=== PATIENT | female | born 1975 | race Asian ===

== ENCOUNTER → 2018-11-19 | Outpatient (CLI) | payer OTHER | LOC: MHCPAIN 15:09 | DX: G89.29 Other chronic pain (principal); M54.12 Radiculopathy, cervical region; M47.812 Spondylosis without myelopathy or radiculopathy, cervical region | CPT/HCPCS: G0463 ==

== ENCOUNTER → 2018-11-27 | Outpatient (CLI) | payer OTHER | LOC: MHCPAIN 08:58 | DX: M54.12 Radiculopathy, cervical region (principal); M47.812 Spondylosis without myelopathy or radiculopathy, cervical region | CPT/HCPCS: J1100; Q9967 ==

== ENCOUNTER → 2018-12-10 | Outpatient (CLI) | payer OTHER | LOC: MHCPAIN 10:17 | DX: G89.29 Other chronic pain (principal); M54.12 Radiculopathy, cervical region; M47.812 Spondylosis without myelopathy or radiculopathy, cervical region | CPT/HCPCS: G0463 ==

== ENCOUNTER → 2018-12-18 | Outpatient (CLI) | payer OTHER | LOC: MHCPAIN 10:09 | DX: M47.812 Spondylosis without myelopathy or radiculopathy, cervical region (principal); M54.12 Radiculopathy, cervical region | CPT/HCPCS: J1100; Q9967 ==

== ENCOUNTER → 2018-12-31 | Outpatient (CLI) | payer OTHER | LOC: MHCPAIN 10:14 | DX: G89.29 Other chronic pain (principal); M54.12 Radiculopathy, cervical region; M47.812 Spondylosis without myelopathy or radiculopathy, cervical region | CPT/HCPCS: G0463 ==

== ENCOUNTER 2019-04-23 04:14 | Emergency (ER) | payer OTHER ==
[~2019-04-23] VITALS: Ht 165.1 cm; Wt 77.7 kg
[2019-04-23 04:17] VITALS: TEMP 97.8
[2019-04-23] MEDS ORDERED: PROAIR HFA0.09 MG/AC IH (04:23)
[2019-04-23] MEDS ORDERED: NEURONTIN600 MG/TAB PO (04:24)
[2019-04-23] MEDS ORDERED: MULTIPLE VITAMI1 CAP PO (04:25)
[2019-04-23] MEDS ORDERED: ZOLOFT 50MG50 MG PO (04:25)
[2019-04-23] MEDS ORDERED: EMERGEN-C 1,01000 MG PO (04:26)
[2019-04-23] MEDS ORDERED: ECHINACEA PURPU80 MG PO (04:26)
[2019-04-23 04:49] LABS: BASO % 0.4 % (0.0-2.0); EOS # 0.2 (0.0-0.7); EOS % 2.3 % (0-4.0); GRAN # 6.5 (1.4-6.5); GRAN % 62.5 % (42.2-75.2); HEMATOCRIT 43.6 % (37.0-47.0); HEMOGLOBIN 14.6 g/dl (12.5-16.0); MEAN CELL VOLUME 85 fl (80.0-100.0); MEAN CORPUSCULAR HEMOGLOBIN 29 pg (27.0-31.0); MEAN CORPUSCULAR HGB CONC 34 g/dl (33.0-37.0); MEAN PLATELET VOLUME 9.3 fl (7.4-10.4); MONO # 0.6 (0.1-0.6); MONO % 5.5 % (1.7-9.3); PLATELET COUNT 268 K/mm3 (130-400); RED BLOOD COUNT 5.12 M/mm3 (4.10-5.30); REDCELL DISTRIBUTION WIDTH-CV 12.8 % (11.5-14.5)
[2019-04-23 04:57] LABS: BILIRUBIN,TOTAL 0.4 mg/dL (0.0-1.0); CREATININE, serum 0.6 (0.52-1.25); POTASSIUM 3.3 mmol/L (3.4-5.0); TOTAL PROTEIN 8.6 gm/dL (6.4-8.2)
[2019-04-23] MEDS ORDERED: TESSALON PERLE200 MG PO (06:04)
[2019-04-23 06:12] VITALS: BP 112/73; PULSE 90
== END 2019-04-23 06:12 | disposition home or self-care (01) ==
LOC: COL.ER 04:14
PROVIDERS: Emergency Medicine
DX: B34.9 Viral infection, unspecified (principal); Z98.890 Other specified postprocedural states
CPT/HCPCS: J1200; J7040

== ENCOUNTER → 2019-08-10 | Outpatient (CLI) | payer OTHER ==
[~2019-08-10] MED LIST: ECHINACEA PURPU80 MG PO; EMERGEN-C 1,01000 MG PO; MULTIPLE VITAMI1 CAP PO; NEURONTIN600 MG/TAB PO; PROAIR HFA0.09 MG/AC IH; TESSALON PERLE200 MG PO; ZOLOFT 50MG50 MG PO
== END ==
LOC: COL.RAD 10:56
DX: M48.02 Spinal stenosis, cervical region (principal); M47.22 Other spondylosis with radiculopathy, cervical region; M50.122 Cervical disc disorder at C5-C6 level with radiculopathy; M40.202 Unspecified kyphosis, cervical region; Z98.1 Arthrodesis status

== ENCOUNTER → 2021-06-07 | Outpatient (CLI) | payer OTHER | LOC: MC.RAD 13:30 | DX: Z12.31 Encounter for screening mammogram for malignant neoplasm of breast (principal) ==

== ENCOUNTER → 2022-10-25 | Outpatient (CLI) | payer OTHER | LOC: COL.RAD 12:21 | DX: N92.0 Excessive and frequent menstruation with regular cycle (principal) ==

== ENCOUNTER → 2023-12-13 | Outpatient (CLI) | payer OTHER | LOC: MC.RAD 13:08 | DX: Z12.31 Encounter for screening mammogram for malignant neoplasm of breast (principal) ==